=== PATIENT | female | born 1950 | race Caucasian/White ===

== ENCOUNTER 2016-05-23 08:18 | Emergency (ER) | payer MEDICARE ==
[~2016-05-23] VITALS: Ht 157.5 cm; Wt 55.0 kg
[2016-05-23 08:32] VITALS: BP 133/87; PULSE 16; PULSE 69; RESP 16; TEMP 98.8; O2SAT 100
--- NOTE | 2016-05-23 08:45 | PD ---
HPI Chief Complaint: Musculoskeletal Complaint Time Seen by Provider: 08:33 Travel History International Travel<30 days: No Contact w/Intl Traveler<30days: No Traveled to known affect area: No History of Present Illness HPI 66-year-old female complains of right-sided neck pain, right shoulder pain and right upper back pain. Patient states the pain started yesterday. Patient states the pain aching pain started in the right sided neck with radiation to the right shoulder breath or back right arm. Patient denies any headache. Patient denies any visual change. Patient denies coughing congestion fever chills. Patient states that she has intermittent shortness of breath for a long time. Patient denies any chest pain. Patient denies abdominal pain. Patient denies any focal weakness or numbness of the extremity. PFSH Social History Tobacco Use: No Allergies-Medications (Allergen,Severity, Reaction): Coded Allergies: No Known Allergies (Unverified , 05/23/16) Reported Meds & Prescriptions Reported Meds & Active Scripts Active Mobic (Meloxicam) 15 Mg Tab 15 Mg PO DAILY Review of Systems General / Constitutional: No: Fever Eyes: No: Visual changes HENT: Positive: Neck Pain, No: Headaches Cardiovascular: No: Chest Pain or Discomfort Respiratory: No: Shortness of Breath Gastrointestinal: No: Abdominal Pain Genitourinary: No: Dysuria Musculoskeletal: Positive: Pain Skin: No Rash Neurologic: No: Weakness Psychiatric: No: Depression Endocrine: No: Polydipsia Hematologic/Lymphatic: No: Easy Bruising Physical Exam Narrative GENERAL: Well-nourished, well-developed patient. SKIN: Warm and dry. HEAD: Normocephalic. EYES: No scleral icterus. No injection or drainage. NECK: Supple, trachea midline. No JVD or lymphadenopathy. Mild tenderness soft tissue right-sided neck. CARDIOVASCULAR: Regular rate and rhythm without murmurs, gallops, or rubs. RESPIRATORY: Breath sounds equal bilaterally. No accessory muscle use. GASTROINTESTINAL: Abdomen soft, non-tender, nondistended. MUSCULOSKELETAL: No cyanosis, or edema. Patient has mild tenderness on palpation right shoulder pad area, right upper back. Full range of motion of the right shoulder. No redness no heat no rash noted. BACK: Nontender without obvious deformity. No CVA tenderness. Neurologic exam normal. Data Data Last Documented VS Vital Signs Date Time Temp Pulse Resp B/P Pulse Ox O2 Delivery O2 Flow Rate FiO2 05/23/16 08:32 98.8 69 16 133/87 100 Room Air Orders Electrocardiogram (05/23/16 ) Chest, Single Ap (05/23/16 08:38) Spine, Cervical - Ltd (Ap&Lat) (05/23/16 08:38) Shoulder, Limited(2vws) (05/23/16 08:38) MDM Medical Decision Making Medical Screen Exam Complete: Yes Emergency Medical Condition: Yes Interpretation(s) 9:30 AM. X-ray shows DJD changes. No acute process. Differential Diagnosis Differential diagnosis including musculoskeletal spasm, radiculopathy. Narrative Course 66-year-old female with right-sided neck pain, with radiation to right shoulder right upper back, right arm. Diagnosis Primary Impression: Cervical radiculopathy Patient Instructions: General Instructions Additional Instructions: Take medications as needed for pain. Follow-up with personal physician. Return if worse. Med/Other Pt SpecificInfo: Prescription(s) given Scripts Meloxicam (Mobic)15 Mg Tab15 Mg PO DAILY #20 TAB Prov:Paulino Colon MD 05/23/16 Disposition: 01 DISCHARGE HOME Condition: Stable Paulino Colon MD May 23, 2016 08:44
--- NOTE | 2016-05-23 09:23 | RADHPO ---
EXAM DATE/TIME: 05/23/2016 08:51 [facility] COMPARISON: No previous studies available for comparison. INDICATIONS : Right shoulder and neck pain MEDICAL HISTORY : None. SURGICAL HISTORY : None. ENCOUNTER: Initial ACUITY: 1 day PAIN SCORE: 8/10 LOCATION: [facility] FINDINGS: There are 7 cervical type vertebral bodies. There is straightening of the normal cervical curve. Ther e are degenerated disc at C3/4, C4/5, C5/6 and C6/7. No acute fracture seen. No destructive lesion is seen. Balloon portions of the lung apex visualized are clear. CONCLUSION: 1. Moderate degenerative changes throughout the cervical spine. 2. No acute fracture seen. Nimesh Arce MD on May 23, 2016 at 9:20 Board Certified Radiologist. This report was verified electronically.
--- NOTE | 2016-05-23 09:24 | RADHPO ---
EXAM DATE/TIME: 05/23/2016 09:03 [facility] COMPARISON: CHEST SINGLE AP, May 23, 2016, 9:01. INDICATIONS : Right shoulder pain. MEDICAL HISTORY : None. SURGICAL HISTORY : None. ENCOUNTER: Initial ACUITY: 1 day PAIN SCORE: 8/10 LOCATION: Right upper extremity FINDINGS: Two view examination of the right shoulder demonstrates no evidence of fracture or dislocation. The glenohumeral and acromioclavicular joints are maintained. Bony mineralization is normal. CONCLUSION: 1. No acute bony abnormality identified. Nimesh Arce MD on May 23, 2016 at 9:22 Board Certified Radiologist. This report was verified electronically.
[2016-05-23] MEDS ORDERED: MOBI15TA PO (09:31)
--- NOTE | 2016-05-23 09:31 | RADHPO ---
EXAM DATE/TIME: 05/23/2016 09:01 [facility] COMPARISON: No previous studies available for comparison. INDICATIONS : Right Shoulder Pain MEDICAL HISTORY : None. SURGICAL HISTORY : None. ENCOUNTER: Initial ACUITY: 1 day PAIN SCORE: 8/10 LOCATION: Right upper chest FINDINGS: A single view of the chest demonstrates the lungs to be symmetrically aerated without evidence of mas s, infiltrate or effusion. Tracheal calcifications are present. The cardiomediastinal contours are un remarkable. Osseous structures are intact with mild scoliosis. The visualized portions of the right shoulder appear intact. CONCLUSION: No acute disease. Jose M Fabian MD on May 23, 2016 at 9:28 Board Certified Radiologist. This report was verified electronically.
--- NOTE | 2016-05-24 09:20 | EKG ---
Date Performed: 05/23/2016 Time Performed: 08:40:14 PTAGE: 66 years EKG: Sinus rhythm . Poor R wave progression - probable normal variant Septal and lateral ST-T changes are nonspecific B orderline ECG PREVIOUS TRACING : 11/01/1996 12.04 Compared to prior tracing no significant change DOCTOR: Pierre Renee Interpretating Date/Time 05/24/2016 09:19:03
== END 2016-05-23 09:40 | disposition home or self-care (01) ==
LOC: PHED 08:18
DX: M54.12 Radiculopathy, cervical region (principal); R06.02 Shortness of breath; R94.31 Abnormal electrocardiogram [ECG] [EKG]
CPT/HCPCS: 71010; 72040; 73030; 93005